=== PATIENT | female | born 1975 | race Caucasian/White ===

== ENCOUNTER 2017-03-04 05:42 | Day surgery (SDC) | payer MEDICARE ==
[2017-03-02 12:05] LABS: HEMATOCRIT 41.6 % (36.0-48.0); HEMOGLOBIN 14.2 g/dL (12-16); MCH 31.1 pg (26.0-34.0); MCHC 34.1 g/dL (31.0-37.0); MCV 91.2 fL (80.0-100.0); MEAN PLATELET VOLUME 10.3 fL (7.4-10.4); RBC 4.56 10x6/uL (4.00-5.40); RDW 13.3 % (11.5-14.5); WBC 8.7 10x3/uL (4.8-10.8)
[2017-03-04 06:15] VITALS: BP 98/59; BMI 23.4
[2017-03-04 07:02] LABS: HCG SERUM NEGATIVE (NEGATIVE)
[2017-03-04] MEDS ORDERED: IBUPROFEN600 MG PO (09:43)
[2017-03-04] MEDS ORDERED: HYDROCODON-ACE1 EAC7 PO (09:44)
--- NOTE | 2017-05-05 17:04 | OP ---
PATIENT NAME: DELORIS PARK MEDICAL RECORD: [id number] :77 LOCATION:[facility] ADMISSION DATE: SURGEON: LILIANA HUITRON MD DATE OF OPERATION: 03/04/2017 PREOPERATIVE DIAGNOSIS: Multiparity, the patient desires permanent sterility. POSTOPERATIVE DIAGNOSIS: Multiparity, the patient desires permanent sterility. PROCEDURE: Laparoscopic tubal ligation via bipolar cautery. SURGEON: Liliana Huitron MD ESTIMATED BLOOD LOSS: Minimal. INTRAVENOUS FLUIDS: Per anesthesia record. SPECIMENS: None. COMPLICATIONS: None apparent. FINDINGS: 1. Grossly normal-appearing fallopian tubes and ovaries. 2. Grossly normal-appearing uterus. PROCEDURE IN DETAIL: The patient was taken to the operating room where general anesthesia was achieved without difficulty. The patient was then prepped and draped in normal sterile fashion in the dorsal lithotomy position. The bladder was drained of approximately 100 cc of clear urine and sponge stick was placed into the vagina for uterine elevation. At this point, a 5-mm infraumbilical incision was made and the 5-mm bladeless trocar was used to enter the intraperitoneal space under direct visualization with the laparoscope. Following intraperitoneal placement, the introducer was removed and insufflation was begun. Opening pressure was found to be less than 10 mmHg. The laparoscope was then reintroduced through the umbilical trocar site. Intraperitoneal placement was again confirmed visually. A second port was placed approximately 3 cm above the pubic symphysis in the midline, making a 5-mm skin incision and using a 5-mm bladeless trocar to enter the intraperitoneal space under direct visualization of the laparoscope. Survey of the abdomen and pelvis was performed. Attention was then turned to the fallopian tubes, where the bipolar cautery was used to completely desiccate an approximately 5 cm section in the mid portion of the tube. This was performed bilaterally and good hemostasis was noted. During the insufflation, a hemostasis was again confirmed. The instruments were removed. The patient was desufflated, trocars were removed and the skin repaired with 3-0 Vicryl in an interrupted fashion. Sponge stick was removed from the vagina. The patient tolerated the procedure well, was transferred to postanesthesia recovery stable without incident. TRANSINT:[id number] Voice Confirmation ID: [id number] DOCUMENT ID: [id number] OPERATIVE REPORT [id number] DELORIS PARK LILIANA HUITRON MD at 1704 CC: [id number] DICTATION DATE: 04/25/17 034 [facility]RAR[facility] SPECIAL LIBRARY: 04/25/17 1018 [facility] 03/04/17 [id number] [place] [address]
== END 2017-03-04 10:35 | disposition home or self-care (01) ==
LOC: D.OPS 05:42 → D.PAN 07:30 → D.OPS 08:15
PROVIDERS: Anesthesiology; Obstetrics & Gynecology
DX: Z30.2 Encounter for sterilization (principal); Z01.812 Encounter for preprocedural laboratory examination